=== PATIENT | male | born 1965 | race Two or more races ===

== ENCOUNTER 2019-08-20 17:16 | Emergency (ER) | payer OTHER ==
[~2019-08-20] VITALS: Ht 188 cm; Wt 133.8 kg
[2019-08-20] MEDS ORDERED: GLIPIZIDE XL10 MG (17:56)
[2019-08-20] MEDS ORDERED: ATACAND32 MG (17:57)
[2019-08-20] MEDS ORDERED: ACTOS45 MG (17:57)
[2019-08-20] MEDS ORDERED: EZALLOR SPRINKL10 MG (17:58)
[2019-08-20] MEDS ORDERED: JANUMET 50-1,01 EACH (17:58)
[2019-08-20] MEDS ORDERED: QUETIAPINE FUM400 M1 (17:59)
== END 2019-08-21 10:21 | disposition home or self-care (01) ==
LOC: ER 17:16
DX: R00.0 Tachycardia, unspecified (principal); E11.9 Type 2 diabetes mellitus without complications; Z03.818 Encounter for observation for suspected exposure to other biological agents ruled out; R53.1 Weakness; R51 Headache

== ENCOUNTER 2021-04-27 13:31 | Emergency (ER) | payer OTHER ==
[~2021-04-27] VITALS: Ht 188 cm; Wt 146.5 kg
[~2021-04-27 13:31] MED LIST: ACTOS45 MG; ATACAND32 MG; EZALLOR SPRINKL10 MG; GLIPIZIDE XL10 MG; JANUMET 50-1,01 EACH; QUETIAPINE FUM400 M1
== END 2021-04-27 17:56 | disposition home or self-care (01) ==
LOC: ER 13:31
DX: R60.0 Localized edema (principal); M79.606 Pain in leg, unspecified; E11.9 Type 2 diabetes mellitus without complications; Z79.84 Long term (current) use of oral hypoglycemic drugs; Z79.4 Long term (current) use of insulin; I10 Essential (primary) hypertension

== ENCOUNTER 2023-04-27 13:31 | Outpatient (CLI) | payer OTHER | END 2023-04-27 13:34 | disposition home or self-care (01) | LOC: SONOGRAMA 13:31 | PROVIDERS: ATTEND Pathology Anatomic Pathology & Clinical Pathology | DX: D34 Benign neoplasm of thyroid gland (principal); E07.89 Other specified disorders of thyroid; D44.0 Neoplasm of uncertain behavior of thyroid gland; E04.2 Nontoxic multinodular goiter ==